=== PATIENT | female | born 1945 | race Caucasian/White ===

== ENCOUNTER → 2016-06-26 | Outpatient (CLI) | payer OTHER ==
[~2016-06-26] VITALS: Ht 157.5 cm; Wt 55.6 kg
[~2016-06-26] MED LIST: APAP500; B COMPLETE1 EAC1 PO; CALCIUM PLUS D; ESTRADERM; FISH OIL 1,001000 M2 PO; FORMULA 303; MULTIVITAMIN PO; TRAMADOL 50 MG50 MG PO; VITAMIN D1000 UNI1 PO
--- NOTE | ~2016-06-26 | HPC ---
[facility] [address] [place] [address] PAIN MANAGEMENT CONSULTATION Name: RYAN EARL Room #: REG [facility] Kimberley#: [id number] Admission: 06/26/16 Attend Phys: Dane Browning DO Discharge: Date of : 43 Report #: [id number] THIS REPORT FOR: //name// CC: SONIYA Browning DATE OF SERVICE: 06/26/2016 The patient is a very pleasant 70-year-old female seen just shy of 3 years ago in July 2013 for lumbar radicular pain. She had an epidural injection with near 100% relief and was lost to follow up. She returns to pain clinic today with a new complaint, that being specifically pain in the right low back. She states that she and her had been cleaning out their family home in anticipation of downsizing, she lifted several boxes of books and her pain seems to have occured around that time. It has been present for the past 6 weeks. She has tried some range of motion and she is INTOLERANT OF NONSTEROIDAL ANTI-INFLAMMATORY MEDICATIONS, hence she has only been using Tylenol for pain. She takes acetaminophen for pain. Rates the pain as 7-8 on a 0-10 visual analog scale. Notes pain is constant, aching, sharp and stabbing, exacerbated with walking, standing, bending and lifting. The patient denies bowel or bladder continence changes. Really no specific myelopathic or radicular symptoms are noted. REVIEW OF SYSTEMS: Complete review of systems is attached to chart, was gone over with the patient. Again, remarkably healthy 70-year-old female. She does not smoke, drink alcohol to excess. She is on female hormone replacements and uses multiple vitamins. Total abdominal hysterectomy several years ago. 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 PHYSICAL EXAMINATION: Reveals a 70-year-old female appearing somewhat younger than stated age, 55 kilograms, 157 cm yielding a BMI of 22.4 kilograms per meter squared. Blood pressure 144/77, pulse 67, respirations 16. Cranial nerves 2-12 grossly intact. Speech is fluent. Alert and oriented to person, place and time, judged to be a reasonable historian. Cervical range of motion is full. Rises from chair easily. Gait is tandem, has diffuse tenderness in the left SI area. Lower extremity strength is symmetric. Straight leg raise is negative. Patellar and Achilles reflexes are preserved. Positive Jenelle test on the left. Skin integument is intact. DIAGNOSTIC STUDIES: There are no recent diagnostic studies available for evaluation at this time. ASSESSMENT: Symptomatic left sacroiliac joint dysfunction for clinical exam corroborated with history. She has positive distraction, [place] [address] PAIN MANAGEMENT CONSULTATION Name: RYAN EARL Room #: REG [facility] Chu#: [id number] Admission: 06/26/16 Attend Phys: Dane Browning DO Discharge: Date of : 43 Report #: [id number] test. History of lumbar radiculopathy, well treated with single epidural injection back in 2013. RECOMMENDATION: 1. Left SI joint injection under fluoroscopy. 2. I referred the patient to physical therapy for core strengthening home exercise regimen. 3. Follow up in 1 month for reevaluation. Consideration for repeat injection and/or other therapeutic modalities if indicated clinically at that time. ASSESSMENT: Left sacroiliac joint dysfunction by clinical exam. PROCEDURE: Left SI joint injection under fluoroscopy. DESCRIPTION OF PROCEDURE: After written informed consent was obtained, the patient was taken to the fluoroscopy suite, placed in prone position. After sterile prep and drape, skin wheal was raised. A 22-gauge stylet needles were placed to contact the inferior aspect of the left SI joint. Negative aspiration was accomplished, 1 mL of Omnipaque was injected, which showed spread within the joints followed with 40 mg triamcinolone plus 2 mL of 0.5% preservative-free bupivacaine. [place] removed. The area was cleansed, Band-Aids applied. The patient was monitored for an appropriate period of time, discharged in good and stable condition. <ELECTRONICALLY SIGNED> By: Dane Browning DO 06/29/16 0749 [id number] Dane Browning DO /nt
[2016-06-26 14:14] VITALS: BP 144/77
== END ==
LOC: PAIN 13:28
DX: M54.16 Radiculopathy, lumbar region (principal); Z90.710 Acquired absence of both cervix and uterus; Z87.891 Personal history of nicotine dependence

== ENCOUNTER → 2016-07-27 | Outpatient (CLI) | payer OTHER ==
[~2016-07-27] VITALS: Ht 160 cm; Wt 54.4 kg
[~2016-07-27] MED LIST changes: +ANACIN 400-321 EACH PO
--- NOTE | ~2016-07-27 | HPC ---
[facility] [place] [address] [place] [address] PAIN MANAGEMENT CONSULTATION Name: RYAN EARL Room #: REG [facility] Michelle.#: [id number] Admission: 07/27/16 Attend Phys: Dane Browning DO Discharge: Date of : 43 Report #: [id number] THIS REPORT FOR: //name// CC: SONIYA Browning HISTORY OF PRESENT ILLNESS: The patient is a 70-year-old female, prior seen in the pain clinic on 06/26/2016, diagnosed with symptomatic lumbar radiculopathy and SI joint dysfunction. She was given a left SI joint injection at that visit. She was told to return to pain clinic today. I have referred the patient to physical therapy for core strengthening. She had a component of lumbar radiculopathy (had actually had about 3 years of relief following epidural injection in July 2013. He returns to pain clinic today noting that the SI joint injection did afford good relief of the low back pain; however, still has bilateral radicular component of pain. Pain is in the left greater than right leg radiating down to the foot, exacerbated with standing and walking, gets worse throughout the day. PHYSICAL EXAMINATION: Shows 70-year-old female, BMI is 21.3 kilograms per meter squared. Blood pressure is 139/84, pulse is 82, respirations 14. Alert and oriented to person, place, and time, judged to be a reasonable historian. Rises from chair using armrests. Prior SI-mediated pain is nominal however, does have a radicular pattern pain. Modestly antalgic gait, positive straight leg raise on the left. ASSESSMENT: 1. Symptomatic lumbar radiculopathy secondary to spinal stenosis. 2. History of sacroiliac joint dysfunction, relatively quiescent at present. RECOMMENDATION: 1. We will refer to physical therapy for core strengthening and some soft tissue manipulation for component of myofascial pain in the axial back area. 2. An epidural injection under fluoroscopy today at L5-S1. 3. Follow up in 4 weeks for reevaluation. PROCEDURE: Lumbar epidural injection under fluoroscopy. PROCEDURE NOTE: After both written and informed consent to include risk of spinal cord damage, increased pain, weakness and dural puncture, the patient was taken to the fluoroscopy suite, placed in the prone position. After sterile prep and drape, a skin wheal with lidocaine was raised. A 22-gauge epidural Tuohy needle was inserted in the midline at L5-S1 with good loss to resistance. Negative aspiration for cerebrospinal fluid or blood was noted. Then 1 mL of Omnipaque under biplanar fluoroscopy showed good spread within the epidural space. This was followed with 80 mg of triamcinolone plus 1 mL of 1.5% preservative-free Xylocaine, 0.5 mL Xylocaine was then injected to flush the [facility] [address] [place] [address] PAIN MANAGEMENT CONSULTATION Name: RYAN EARL BETTINA Room #: REG [facility] Kimberley#: [id number] Admission: 07/27/16 Attend Phys: Dane Browning DO Discharge: Date of : 43 Report #: [id number] needle; it was removed. The patient was monitored for an appropriate period of time and discharged in good and stable condition. <ELECTRONICALLY SIGNED> By: Dane Browning DO 07/29/16 0859 [id number] Dane Browning DO /nt
[2016-07-27 09:57] VITALS: BP 139/84
== END | disposition home or self-care (01) ==
LOC: PAIN 06:07
DX: M48.06 Spinal stenosis, lumbar region (principal); M53.3 Sacrococcygeal disorders, not elsewhere classified; Z87.891 Personal history of nicotine dependence

== ENCOUNTER → 2019-01-03 | Outpatient (CLI) | payer OTHER ==
[~2019-01-03] VITALS: Ht 157.5 cm; Wt 54.4 kg
[2019-01-03 11:39] VITALS: BP 143/93
--- NOTE | 2019-01-03 12:07 | NUR ---
Pain Clinic Assessment: 1. History of Osteoarthritis: LEFT FOOT History of Rheumatoid Arthritis: NONE 2. Height: 5 ft. 2 in. 157.5 cm. Weight: 120.0 lb. oz. 54.432 kg. Patient's BMI: 21.9 3. Vital Signs: BP: 143/93 Pulse: 72 Resp: 16 Temp: 02 Sat: 100 ECG Mon: 4. Pain Intensity: 4-WALKING 7-8-WHEN BAD 5. Fall Risk: Dizziness: N Needs help standing or walking: N Fallen in the last 3 months: N Fall risk comments: 6. Patient on Blood Thinner: None 7. History of Hypertension: N 8. Opioid Therapy greater than 6 weeks: Opiate Contract Signed: 9. Risk Assessment Tool Provided: 10. Functional Assessment Tool: 11. Recreational Drug Use: Never Drug Type: Tobacco Use: Former Smoker Tobacco Type: Amount or Packs/day: How Many Years: Alcohol Use: Yes Frequency: Weekly Quant: 4-5 TIMES A WEEK
== END | disposition home or self-care (01) ==
LOC: PAIN 01-02 13:45
DX: M47.27 Other spondylosis with radiculopathy, lumbosacral region (principal); M51.16 Intervertebral disc disorders with radiculopathy, lumbar region; M48.061 Spinal stenosis, lumbar region without neurogenic claudication; M12.88 Other specific arthropathies, not elsewhere classified, other specified site; G89.29 Other chronic pain; Z88.8 Allergy status to other drugs, medicaments and biological substances; Z87.891 Personal history of nicotine dependence; Z79.82 Long term (current) use of aspirin; Z79.899 Other long term (current) drug therapy